=== PATIENT | female | born 1950 | race Caucasian/White ===

== ENCOUNTER 2016-07-30 22:49 | Emergency (ER) | payer MEDICARE, BC ==
[~2016-07-30] VITALS: Ht 154.9 cm; Wt 72.1 kg
[2016-07-30 22:53] VITALS: BP 156/82; PULSE 72; RESP 16; TEMP 98.2; O2SAT 96
[2016-07-30] MEDS ORDERED: MULTTAB67 PO (23:14)
[2016-07-30] MEDS ORDERED: LEVO25TA4 PO (23:14)
[2016-07-30] MEDS ORDERED: OMEP20TA PO (23:14)
[2016-07-30] MEDS ORDERED: FLUT1SPR5 EACH NARE (23:14)
[2016-07-30] MEDS ORDERED: ASPI81CH CHEW (23:14)
[2016-07-30] MEDS ORDERED: LACTCAP8 PO (23:14)
[2016-07-30] MEDS ORDERED: HYDR-4107 PO (23:14)
[2016-07-30] MEDS ORDERED: ATOR40TA16 PO (23:14)
[2016-07-30] MEDS ORDERED: OXYBXL10 PO (23:14)
[2016-07-30] MEDS ORDERED: CIPR500T2 PO (23:14)
[2016-07-30] MEDS ORDERED: GABA300C5 PO (23:14)
--- NOTE | 2016-07-30 23:21 | PD ---
HPI Chief Complaint: right flank pain Time Seen by Provider: 23:10 Travel History International Travel<30 days: No Contact w/Intl Traveler<30days: No Traveled to known affect area: No History of Present Illness HPI 65-year-old female here for evaluation of right flank pain. On 07/21/16 the patient had a right ureteral stent placed by a urologist in [place] for a urethral blockage/hydronephrosis according to the patient. The patient had this stent removed today in the urologist office, and left his office at around noon today. Since around 3:00 PM the patient has had right-sided flank pain that radiates to her right lower abdomen. Symptoms have been intermittent, sharp, moderate to severe, no modifying factors. The patient feels nauseous but has not vomited. No history of abdominal surgeries. She has been urinating frequently, however denies dysuria, hematuria, or pyuria. PFSH Social History Alcohol Use: Yes Tobacco Use: No (Quit 1998) Allergies-Medications (Allergen,Severity, Reaction): Coded Allergies: No Known Allergies (Unverified , 07/30/16) Reported Meds & Prescriptions Reported Meds & Active Scripts Active Zofran (Ondansetron HCl) 4 Mg Tab 4 Mg PO Q6HR PRN Percocet (Oxycodone-Acetaminophen) 5-325 mg Tab 1-2 Tab PO Q6H PRN Reported Levothyroxine (Levothyroxine Sodium) 25 Mcg Tab 25 Mcg PO DAILY Hydrocodone-Acetaminophen 5-300 Mg Tab 1 Tab PO Q6H PRN Flonase Nasal [place] (Fluticasone Nasal [place]) 50 Mcg/Act [place] 50 Mcg EACH NARE BID Aspirin 81 Mg Chew 81 Mg CHEW DAILY Probiotic (Lactobacillus Acidophilus) 1 Cap Cap 1 Cap PO DAILY Omeprazole 20 Mg Tab 20 Mg PO DAILY Atorvastatin (Atorvastatin Calcium) 40 Mg Tab 40 Mg PO HS Gabapentin 300 Mg Cap 900 Mg PO HS Review of Systems Except as stated in HPI: all other systems reviewed are Neg Physical Exam Narrative GENERAL: Well-developed, well-nourished, comfortable, no acute distress. SKIN: Focused skin assessment warm/dry. No rash. HEAD: Atraumatic. Normocephalic. EYES: Pupils equal and round. No scleral icterus. No injection or drainage. ENT: Mucous membranes pink and moist. CARDIOVASCULAR: Regular rate and rhythm. RESPIRATORY: No accessory muscle use. Clear to auscultation. Breath sounds equal bilaterally. GASTROINTESTINAL: Abdomen soft, nondistended. Mild diffuse tenderness without peritoneal signs. Normal bowel sounds. MUSCULOSKELETAL: No obvious deformities. No clubbing. No cyanosis. No edema. No midline vertebral step-off or tenderness. No CVA tenderness. NEUROLOGICAL: Awake and alert. No obvious cranial nerve deficits. Motor grossly within normal limits. Normal speech. PSYCHIATRIC: Appropriate mood and affect; insight and judgment normal. Data Data Last Documented VS Vital Signs Date Time Temp Pulse Resp B/P Pulse Ox O2 Delivery O2 Flow Rate FiO2 07/31/16 01:50 66 16 141/70 97 Room Air 07/30/16 22:53 98.2 Orders Complete Blood Count With Diff (07/30/16 23:26) Comprehensive Metabolic Panel (07/30/16 23:) Lipase (07/30/16 23:26) Prothrombin Time / Inr (Pt) (07/30/16:26) Act Partial Throm Time (Ptt) (07/30/16 23:26) Urinalysis - C+S If Indicated (07/30/16 23:26) Iv Access Insert/Monitor (07/30/16 23:26) Ecg Monitoring (07/30/16 23:26) Oximetry (07/30/16 23:26) Morphine Inj (Morphine Inj) (07/30/16 23:30) Sodium Chlor 0.9% 1000 Ml Inj (Ns 1000 M (07/30/16 23:26) Sodium Chloride 0.9% Flush (Ns Flush) (07/30/16 23:30) Ct Abd/Pel W Iv Contrast(Rout) (07/30/16 23:46) Urine Culture (07/30/16 23:25) Iohexol 350 Inj (Omnipaque 350 Inj) (07/31/16 00:51) Radiology Film Requests (07/31/16 ) Ketorolac Inj (Toradol Inj) (07/31/16 01:30) Labs Laboratory Tests Test 07/30/16 23:25 White Blood Count 10.4 TH/MM3 Red Blood Count 4.27 MIL/MM3 Hemoglobin 13.1 GM/DL Hematocrit 38.3 % Mean Corpuscular Volume 89.7 FL Mean Corpuscular Hemoglobin 30.6 PG Mean Corpuscular Hemoglobin 34.2 % Concent Red Cell Distribution Width 12.8 % Platelet Count 257 TH/MM3 Mean Platelet Volume 8.3 FL Neutrophils (%) (Auto) 76.3 % Lymphocytes (%) (Auto) 13.0 % Monocytes (%) (Auto) 8.0 % Eosinophils (%) (Auto) 2.2 % Basophils (%) (Auto) 0.5 % Neutrophils # (Auto) 8.0 TH/MM3 Lymphocytes # (Auto) 1.3 TH/MM3 Monocytes # (Auto) 0.8 TH/MM3 Eosinophils # (Auto) 0.2 TH/MM3 Basophils # (Auto) 0.1 TH/MM3 CBC Comment DIFF FINAL Differential Comment Prothrombin Time 10.3 SEC Prothromb Time International 0.9 RATIO Ratio Activated Partial 25.9 SEC Thromboplast Time Urine Color YELLOW Urine Turbidity CLEAR Urine pH 6.0 Urine Specific [place] 1.010 Urine Protein 30 mg/dL Urine Glucose (UA) NEG mg/dL Urine Ketones NEG mg/dL Urine Occult Blood LARGE Urine Nitrite NEG Urine Bilirubin NEG Urine Leukocyte Esterase NEG Urine RBC 25-49 /hpf Urine WBC 9-14 /hpf Urine Squamous Epithelial 0-5 /hpf Cells Urine Bacteria NONE /hpf Microscopic Urinalysis Comment CULTURE INDICATED Sodium Level 144 MEQ/L Potassium Level 3.0 MEQ/L Chloride Level 107 MEQ/L Carbon Dioxide Level 27.6 MEQ/L Anion Gap 9 MEQ/L Blood Urea Nitrogen 11 MG/DL Creatinine 0.78 MG/DL Estimat Glomerular Filtration 74 ML/MIN Rate Random Glucose 118 MG/DL Calcium Level 8.8 MG/DL Total Bilirubin 0.3 MG/DL Aspartate Amino Transf 10 U/L (AST/SGOT) Alanine Aminotransferase 23 U/L (ALT/SGPT) Alkaline Phosphatase 54 U/L Total Protein 7.0 GM/DL Albumin 3.7 GM/DL Lipase 142 U/L [facility] Medical Decision Making Medical Screen Exam Complete: Yes Emergency Medical Condition: Yes Differential Diagnosis Hydronephrosis, ureteral stricture, nephrolithiasis, ureterolithiasis, pyelonephritis, UTI, cystitis, cholecystitis Narrative Course At approximately midnight at the end of my shift the patient was signed out to Dr. Hughes to follow up with labs, CT abdomen pelvis, and formulate a disposition. Scripts Ondansetron (Zofran)4 Mg Tab4 Mg PO Q6HR PRN (NAUSEA OR VOMITING) #20 TAB Ref 0 Prov:George Hughes MD 07/31/16 Oxycodone-Acetaminophen (Percocet)5-325 mg Tab1-2 Tab PO Q6H PRN (PAIN) #30 TAB Ref 0 Prov:George Hughes MD 07/31/16 Paolo Peralta MD Jul 30, 2016 23:21
[2016-07-30] MEDS ORDERED: SODIUM CHLOR 0.9% 1000 ML INJ 1,000 ML IV SCH (23:26)
[2016-07-30] MEDS ORDERED: MORPHINE SULFATE 4 MG/ML INJ IV PUSH ONE (23:30)
[2016-07-30] MEDS ORDERED: SODIUM CHLORIDE 0.9% FLUSH 10 ML FLUSH IV FLUSH PRN (23:30)
[2016-07-30 23:40] VITALS: BP 142/73; PULSE 70; RESP 16; O2SAT 96; O2SAT 98
[2016-07-31 00:02] LABS: BLOOD, URINE LARGE (NEG); GLUCOSE,URINE NEG (NEG); KETONE, URINE NEG (NEG); NITRITE,URINE NEG (NEG)
[2016-07-31 00:05] LABS: BASOPHIL # 0.1 TH/MM3 (0-0.2); BASOPHIL % 0.5 % (0.0-2.0); EOSINOPHIL # 0.2 TH/MM3 (0-0.4); EOSINOPHIL % 2.2 % (0.0-4.0); HEMATOCRIT 38.3 % (35.0-46.0); HEMO FLAGS DIFF FINAL; LYMPHOCYTE # 1.3 TH/MM3 (1.0-4.8); MEAN CELL VOLUME 89.7 FL (80.0-100.0); MEAN CORPUSCULAR HEMOGLOBIN 30.6 PG (27.0-34.0); MEAN CORPUSCULAR HGB CONC 34.2 % (32.0-36.0); NEUT % 76.3 % (16.0-70.0); PLATELET COUNT 257 TH/MM3 (150-450); RED BLOOD COUNT 4.27 MIL/MM3 (4.00-5.30); RED CELL DISTRIBUTION WIDTH 12.8 % (11.6-17.2); WHITE BLOOD COUNT 10.4 TH/MM3 (4.0-11.0)
[2016-07-31 00:13] LABS: CHLORIDE 107 MEQ/L (98-107); SODIUM (NA) 144 MEQ/L (136-145)
[2016-07-31 00:14] LABS: URINE COLOR YELLOW (YELLW/STRAW)
[2016-07-31 00:15] LABS: COMMENT (UR) CULTURE INDICATED; CULTURE IF INDICATED CULTURE INDICATED; SQUAMOUS EPITHELIAL CELL URINE 0-5 /hpf (0-5)
[2016-07-31 00:17] LABS: ANION GAP 9 MEQ/L (5-15); BICARBONATE 27.6 MEQ/L (21.0-32.0); BLOOD UREA NITROGEN 11 MG/DL (7-18)
[2016-07-31 00:20] LABS: ALT (GPT) 23 U/L (10-53); APTT (PATIENT) 25.9 SEC (24.3-30.1); AST (GOT) 10 U/L (15-37); GLOMERULAR FILTRATION RATE 74 ML/MIN (>89); INTERNATIONAL NORMALIZED RATIO 0.9 RATIO; PROTHROMBIN TIME - PATIENT 10.3 SEC (9.8-11.6)
[2016-07-31 00:21] LABS: TOTAL BILIRUBIN ADULT 0.3 MG/DL (0.2-1.0)
[2016-07-31 00:23] LABS: ALKALINE PHOSPHATASE 54 U/L (45-117)
[2016-07-31 00:25] VITALS: BP 136/72; PULSE 64; RESP 16; O2SAT 97
[2016-07-31] MEDS ORDERED: IOHEXOL 350 MG/ML 10 ML VIAL (for RAD DIAG) IV ONE (00:51)
--- NOTE | 2016-07-31 00:56 | RADHPO ---
EXAM DATE/TIME: 07/31/2016 00:37 [place] COMPARISON: No previous studies available for comparison. INDICATIONS : Right flank pain following right uretal stent removal today. IV CONTRAST: 100 cc Omnipaque 350 (iohexol) IV ORAL CONTRAST: No oral contrast ingested. RADIATION DOSE: 12.52 CTDIvol (mGy) MEDICAL HISTORY : None SURGICAL HISTORY : Hysterectomy. ENCOUNTER: Initial ACUITY: 1 day PAIN SCALE: 8/10 LOCATION: Right flank TECHNIQUE: Volumetric scanning of the abdomen and pelvis was performed. Using automated exposure control and ad justment of the mA and/or kV according to patient size, radiation dose was kept as low as reasonably achievable to obtain optimal diagnostic quality images. FINDINGS: LOWER LUNGS: The visualized lower lungs are clear. LIVER: Homogeneous density without lesion. There is no dilation of the biliary tree. No calcified gallston es. SPLEEN: Normal size without lesion. PANCREAS: Within normal limits. KIDNEYS: Normal in size and shape. There is bilateral renal cysts. There is mild hydronephrosis and hydrouret er on the right side with some periureteral fluid suspicious for forniceal rupture. The distal ureter is also more enhancing on the right than the left may be recently passed renal calculus. ADRENAL GLANDS: Within normal limits. VASCULAR: There is no aortic aneurysm. BOWEL/MESENTERY: The stomach, small bowel, and colon demonstrate no acute abnormality. There is no free intraperitone al air or fluid. ABDOMINAL WALL: Within normal limits. RETROPERITONEUM: There is no lymphadenopathy. BLADDER: No wall thickening or mass. REPRODUCTIVE: Within normal limits. INGUINAL: There is no lymphadenopathy or hernia. MUSCULOSKELETAL: Within normal limits for patient age. CONCLUSION: Constellation of findings including mild hydronephrosis and hydroureter on the right with some periur eteral fluid suspicious for forniceal rupture. The distal ureter is also markedly enhancing on the ri ght compared to left all suggest a recently passed right renal calculus. Corbin Becker MD on July 31, 2016 at 0:53 Board Certified Radiologist. This report was verified electronically.
--- NOTE | 2016-07-31 01:25 | PD ---
Physical Exam Time Seen by Provider: 01:23 Narrative The CBC is essentially normal. The coagulation profile is normal. The complete metabolic profile shows a potassium of 3.0 but is otherwise unremarkable. The lipase is normal. The urine shows large occult blood, 25-49 red cells and 9-14 white cells and culture is indicated. Data Data Last Documented VS Vital Signs Date Time Temp Pulse Resp B/P Pulse Ox O2 Delivery O2 Flow Rate FiO2 07/31/16 00:30 16 07/30/16 23:40 96 Room Air 07/30/16 23:30 66 07/30/16 22:53 98.2 156/82 Orders Complete Blood Count With Diff (07/30/16 23:26) Comprehensive Metabolic Panel (07/30/16:) Lipase (07/30/16:) Prothrombin Time / Inr (Pt) (07/30/16:) Act Partial Throm Time (Ptt) (07/30/16:) Urinalysis - C+S If Indicated (07/30/16 23:) Iv Access Insert/Monitor (07/30/16:) Ecg Monitoring (07/30/16:26) Oximetry (07/30/16:26) Morphine Inj (Morphine Inj) (07/30/16 23:30) Sodium Chlor 0.9% 1000 Ml Inj (Ns 1000 M (07/30/16 23:26) Sodium Chloride 0.9% Flush (Ns Flush) (07/30/16 23:30) Ct Abd/Pel W Iv Contrast(Rout) (07/30/16 23:46) Urine Culture (07/30/16 23:25) Iohexol 350 Inj (Omnipaque 350 Inj) (07/31/16 00:51) Radiology Film Requests (07/31/16 ) Ketorolac Inj (Toradol Inj) (07/31/16 01:30) Labs Laboratory Tests Test 07/30/16 23:25 White Blood Count 10.4 TH/MM3 Red Blood Count 4.27 MIL/MM3 Hemoglobin 13.1 GM/DL Hematocrit 38.3 % Mean Corpuscular Volume 89.7 FL Mean Corpuscular Hemoglobin 30.6 PG Mean Corpuscular Hemoglobin 34.2 % Concent Red Cell Distribution Width 12.8 % Platelet Count 257 TH/MM3 Mean Platelet Volume 8.3 FL Neutrophils (%) (Auto) 76.3 % Lymphocytes (%) (Auto) 13.0 % Monocytes (%) (Auto) 8.0 % Eosinophils (%) (Auto) 2.2 % Basophils (%) (Auto) 0.5 % Neutrophils # (Auto) 8.0 TH/MM3 Lymphocytes # (Auto) 1.3 TH/MM3 Monocytes # (Auto) 0.8 TH/MM3 Eosinophils # (Auto) 0.2 TH/MM3 Basophils # (Auto) 0.1 TH/MM3 CBC Comment DIFF FINAL Differential Comment Prothrombin Time 10.3 SEC Prothromb Time International 0.9 RATIO Ratio Activated Partial 25.9 SEC Thromboplast Time Urine Color YELLOW Urine Turbidity CLEAR Urine pH 6.0 Urine Specific [place] 1.010 Urine Protein 30 mg/dL Urine Glucose (UA) NEG mg/dL Urine Ketones NEG mg/dL Urine Occult Blood LARGE Urine Nitrite NEG Urine Bilirubin NEG Urine Leukocyte Esterase NEG Urine RBC 25-49 /hpf Urine WBC 9-14 /hpf Urine Squamous Epithelial 0-5 /hpf Cells Urine Bacteria NONE /hpf Microscopic Urinalysis Comment CULTURE INDICATED Sodium Level 144 MEQ/L Potassium Level 3.0 MEQ/L Chloride Level 107 MEQ/L Carbon Dioxide Level 27.6 MEQ/L Anion Gap 9 MEQ/L Blood Urea Nitrogen 11 MG/DL Creatinine 0.78 MG/DL Estimat Glomerular Filtration 74 ML/MIN Rate Random Glucose 118 MG/DL Calcium Level 8.8 MG/DL Total Bilirubin 0.3 MG/DL Aspartate Amino Transf 10 U/L (AST/SGOT) Alanine Aminotransferase 23 U/L (ALT/SGPT) Alkaline Phosphatase 54 U/L Total Protein 7.0 GM/DL Albumin 3.7 GM/DL Lipase 142 U/L [facility] Medical Record Reviewed: Yes Supervised Visit with MADONNA: Yes Physician Communication Physician Communication I discussed the patient with Dr. Nascimento who states his office staff will call the patient later on this morning to set up an appointment. Diagnosis Primary Impression: Right ureteral injury Additional Impression: Hydronephrosis, right Additional Instruction: Dr. Nascimento said that his office staff will call you later on this morning to set up that appointment in his office. Do not drink alcohol or drive on the Percocet 5. The Zofran is for nausea. Zofran is one every 6 hours as needed for nausea. Med/Other Pt SpecificInfo: Prescription(s) given Scripts Ondansetron (Zofran)4 Mg Tab4 Mg PO Q6HR PRN (NAUSEA OR VOMITING) #20 TAB Ref 0 Prov:George Hughes MD 07/31/16 Oxycodone-Acetaminophen (Percocet)5-325 mg Tab1-2 Tab PO Q6H PRN (PAIN) #30 TAB Ref 0 Prov:George Hughes MD 07/31/16 Disposition: 01 DISCHARGE HOME Condition: Stable George Hughes MD Jul 31, 2016 01:25
[2016-07-31] MEDS ORDERED: KETOROLAC TROMETHAMINE 60 MG/2 ML (IM) VIAL IVP ONE (01:30)
[2016-07-31] MEDS ORDERED: PERC5TAB12 PO (01:37)
[2016-07-31] MEDS ORDERED: ZOFR4TAB PO (01:38)
[2016-07-31 01:50] VITALS: BP 141/70; PULSE 66; RESP 16; O2SAT 97
[2016-08-01] MEDS ORDERED: MACR100C2 PO (04:00)
[2016-08-01] MEDS ORDERED: PHEN0.4T PO (04:00)
== END 2016-07-31 02:04 | disposition home or self-care (01) ==
LOC: PHED 22:49
DX: S37.10XA Unspecified injury of ureter, initial encounter (principal); N13.30 Unspecified hydronephrosis; N13.4 Hydroureter; R11.0 Nausea; R35.0 Frequency of micturition; Z98.890 Other specified postprocedural states; Z87.891 Personal history of nicotine dependence; X58.XXXA Exposure to other specified factors, initial encounter
CPT/HCPCS: 74177; 80053; 81001; 83690; 85025; 85610; 85730; 87086; 96361; 96374; 96375; 99284; J1885; J2270; J7030; Q9967

== ENCOUNTER 2016-08-01 03:05 | Emergency (ER) | payer MEDICARE, BC ==
[~2016-08-01] VITALS: Ht 154.9 cm; Wt 72.2 kg
[~2016-08-01 03:05] MED LIST: ASPI81CH CHEW; ATOR40TA16 PO; FLUT1SPR5 EACH NARE; GABA300C5 PO; HYDR-4107 PO; LACTCAP8 PO; LEVO25TA4 PO; OMEP20TA PO; PERC5TAB12 PO; ZOFR4TAB PO
[2016-08-01 03:15] VITALS: BP 175/75; PULSE 59; RESP 18; TEMP 98.4; O2SAT 97
[2016-08-01 03:38] LABS: BLOOD, URINE LARGE (NEG); GLUCOSE,URINE NEG (NEG); KETONE, URINE NEG (NEG); NITRITE,URINE NEG (NEG)
[2016-08-01 03:40] LABS: URINE COLOR YELLOW (YELLW/STRAW)
[2016-08-01 03:43] LABS: COMMENT (UR) CULT NOT INDICATED; CULTURE IF INDICATED CULT NOT INDICATED; SQUAMOUS EPITHELIAL CELL URINE 0-5 /hpf (0-5)
[2016-08-01] MEDS ORDERED: PHENAZOPYRIDINE HCL 100 MG TAB PO ONE (04:00)
[2016-08-01] MEDS ORDERED: PHEN0.4T PO (04:00)
[2016-08-01] MEDS ORDERED: MACR100C2 PO (04:00)
--- NOTE | 2016-08-01 04:00 | PD ---
HPI Chief Complaint: Complaint Time Seen by Provider: 03:44 Travel History International Travel<30 days: No Contact w/Intl Traveler<30days: No Traveled to known affect area: No History of Present Illness HPI 65-year-old female presents to the emergency department by private transportation the care of her spouse for evaluation of right flank pain radiating to the suprapubic location with mild discomfort with urination. Patient was seen yesterday in the emergency department for severe right flank pain 10 over 10 in intensity. Patient reports this morning around 2 AM pain was 8/10 in intensity. Patient took pain medication prescribed from yesterday but due to persistent discomfort decided to come to the emergency room for evaluation. Patient had had vague abdominal pain and flank pain was finally evaluated as an outpatient by an urologist and was identified to have hydronephrosis with hydroureter was suspicious for ureteral stenosis and had ureteral stent placed by her urologist in [place]. Patient has had ureteral stent removed Thursday07/29/16 at her [place] urologist's office and left doing well on Thursday until about 3 PM and started having recurrent right flank pain by 11 PM on Thursday evening was having severe pain and presented for further evaluation at that time urinalysis showed some white cells and red blood cells for CT abdomen and pelvis was performed which identified hydronephrosis hydroureter periureteral stranding concerning for forniceal rupture and distal ureter changes suspicious for recently passed stone. This was shared information with the patient's urologist Dr. Aguirre with the ED physician last evening who felt the patient had not passed a stone but did make arrangements to follow-up with the patient today. Patient states she did speak with her urologist who stated that she had had an episode of spasm and no further testing was necessary. Patient had done well until this evening started noticing some mild discomfort and then 2 AM again with severe pain and presents now for ongoing discomfort. Patient denies fever or chills. Patient's had nausea without vomiting. PFSH Past Medical History Narrative Medical Dyslipidemia ureteral stenosis hypothyroidism ureteral stent hysterectomy tonsillectomy; nursing notes reviewed High Cholesterol: Yes Diminished Hearing: No GERD: Yes Thyroid Disease: Yes ?: Not : 5 Para: 2 Miscarriage: 3 Past Surgical History Genitourinary Surgery: Yes (RIGHT STENT PLACEMENT AND REMOVAL) Hysterectomy: Yes (PARTIAL) Tonsillectomy: Yes Social History Alcohol Use: Yes Tobacco Use: No (Quit 1998) Substance Use: No Allergies-Medications (Allergen,Severity, Reaction): Coded Allergies: No Known Allergies (Unverified , 08/01/16) Reported Meds & Prescriptions Reported Meds & Active Scripts Active Macrobid (Nitrofurantoin Monoh/Nitrofur Macro) 100 Mg Cap 100 Mg PO BID Pyridium (Phenazopyridine HCl) 100 Mg Tab 100 Mg PO Q8H PRN Zofran (Ondansetron HCl) 4 Mg Tab 4 Mg PO Q6HR PRN Percocet (Oxycodone-Acetaminophen) 5-325 mg Tab 1-2 Tab PO Q6H PRN Reported Levothyroxine (Levothyroxine Sodium) 25 Mcg Tab 25 Mcg PO DAILY Hydrocodone-Acetaminophen 5-300 Mg Tab 1 Tab PO Q6H PRN Flonase Nasal [place] (Fluticasone Nasal [place]) 50 Mcg/Act [place] 50 Mcg EACH NARE BID Aspirin 81 Mg Chew 81 Mg CHEW DAILY Probiotic (Lactobacillus Acidophilus) 1 Cap Cap 1 Cap PO DAILY Omeprazole 20 Mg Tab 20 Mg PO DAILY Atorvastatin (Atorvastatin Calcium) 40 Mg Tab 40 Mg PO HS Gabapentin 300 Mg Cap 900 Mg PO HS Review of Systems Except as stated in HPI: all other systems reviewed are Neg General / Constitutional: No: Fever, Chills HENT: No: Congestion Cardiovascular: No: Chest Pain or Discomfort Respiratory: No: Shortness of Breath Gastrointestinal: Positive: Nausea, Abdominal Pain (suprpubic pressure), No: Vomiting Genitourinary: Positive: Urgency, Dysuria, Flank Pain Musculoskeletal: No: Myalgias, Arthralgias Skin: No Rash Neurologic: No: Weakness Psychiatric: No: Anxiety Hematologic/Lymphatic: No: Lymph Node Enlargement Physical Exam Narrative GENERAL: Well-developed well-nourished female in no acute distress no respiratory distress SKIN: Warm and dry. HEAD: Normocephalic. EYES: No scleral icterus. No injection or drainage. NECK: Supple, trachea midline. No JVD or lymphadenopathy. CARDIOVASCULAR: Regular rate and rhythm without murmurs, gallops, or rubs. RESPIRATORY: Breath sounds equal bilaterally. No accessory muscle use. GASTROINTESTINAL: Abdomen soft, mild suprapubic tenderness to direct palpation without guarding or rebound, nondistended. MUSCULOSKELETAL: No cyanosis, or edema. BACK: Nontender without obvious deformity. No CVA tenderness. Data Data Last Documented VS Vital Signs Date Time Temp Pulse Resp B/P Pulse Ox O2 Delivery O2 Flow Rate FiO2 08/01/16 03:15 98.4 59 18 175/75 97 Orders Urinalysis - C+S If Indicated (08/01/16 03:26) Phenazopyridine (Pyridium) (08/01/16 04:00) Bladder Scan PRN (08/01/16 04:00) Labs Laboratory Tests Test 08/01/16 03:25 Urine Color YELLOW Urine Turbidity CLEAR Urine pH 6.0 Urine Specific [place] 1.013 Urine Protein 30 mg/dL Urine Glucose (UA) NEG mg/dL Urine Ketones NEG mg/dL Urine Occult Blood LARGE Urine Nitrite NEG Urine Bilirubin NEG Urine Leukocyte Esterase NEG Urine RBC 10-14 /hpf Urine WBC 6-8 /hpf Urine Squamous Epithelial 0-5 /hpf Cells Urine Bacteria NONE /hpf Microscopic Urinalysis Comment CULT NOT INDICATED MDM Medical Decision Making Medical Screen Exam Complete: Yes Emergency Medical Condition: Yes Medical Record Reviewed: Yes Interpretation(s) UA: Positive large blood, 10-14 RBCs 6-8 WBCs no bacteria Differential Diagnosis Renal colic, bladder spasm, UTI Narrative Course Urine specimen collected and sent for resulting; diagnostics from 07/30 and 07/31 reviewed Bedside bladder scan post void no residual urine volume Patient given Pyridium 100 mg times one dose in the emergency department Patient stable for outpatient management and follow-up with primary urologist; urine culture pending Diagnosis Primary Impression: Hydronephrosis Additional Impression: Spastic dysuria Referrals: Urologist 1 day Patient Instructions: General Instructions Additional Instructions: Increase fluid hydration Take medications as prescribed as needed for pain or bladder spasm Monitor temperature with thermometer take acetaminophen/Tylenol as needed for fever 100.4F or greater Follow-up with your urologist call office in a.m. to schedule follow-up appointment Return to the emergency department for any concerns pain fever vomiting or change in condition Med/Other Pt SpecificInfo: Prescription(s) given Scripts Nitrofurantoin Monohydrate Macrocrystals (Macrobid)100 Mg [id number] Mg PO BID #6 CAP Ref 0 Prov:Karla Pillai MD 08/01/16 Phenazopyridine (Pyridium)100 Mg [id number] Mg PO Q8H PRN (DYSURIA) #6 TAB Ref 0 Prov:Karla Pillai MD 08/01/16 Disposition: 01 DISCHARGE HOME Condition: Stable Karla Pillai MD Aug 01, 2016 04:00
== END 2016-08-01 04:24 | disposition home or self-care (01) ==
LOC: PHED 03:05
DX: N13.30 Unspecified hydronephrosis (principal); R30.0 Dysuria; R25.2 Cramp and spasm; R11.0 Nausea; E78.5 Hyperlipidemia, unspecified; E03.9 Hypothyroidism, unspecified; Z98.890 Other specified postprocedural states; Z87.891 Personal history of nicotine dependence
CPT/HCPCS: 51798; 81001